=== PATIENT | female | born 1995 | race Hispanic/Latino ===

== ENCOUNTER → 2017-10-05 | Outpatient (CLI) | payer OTHER ==
[~2017-10-05] MED LIST: ALBU8.5H8 IH; FLUT16H NASAL; MONT10TA24 PO; NORG1TAB65 PO
== END | disposition home or self-care (01) ==
LOC: RAH 13:13
PROVIDERS: ATTEND Otolaryngology Plastic Surgery within the Head & Neck
DX: J32.9 Chronic sinusitis, unspecified (principal)
CPT/HCPCS: 70486

== ENCOUNTER 2018-07-16 06:32 | Day surgery (SDC) | payer OTHER ==
[2018-07-11 11:03] LABS: BASOPHILS % (AUTO) 0.4 % (0.0-5.0); HEMATOCRIT 39.2 % (36-48); LYMPHOCYTES % (AUTO) 26.2 % (21.0-51.0); MEAN CORPUSCULAR HGB CONC 33.2 g/dL (32.0-36.0); MEAN CORPUSCULAR VOLUME 84.2 fL (79-99); MONOCYTES % (AUTO) 5.7 % (3.0-13.0); NEUTROPHILS % (AUTO) 58.7 % (40.0-77.0); PLATELET COUNT (AUTO) 217 K/uL (130-400); RED BLOOD CELL COUNT(AUTO) 4.66 MIL/uL (4.00-5.50); RED CELL DISTRIBUTION WIDTH 13.2 % (11.0-15.5); WHITE BLOOD COUNT (AUTO) 6.9 K/uL (4.8-10.8)
[2018-07-11 11:05] VITALS: BP 120/76
[2018-07-11 11:51] LABS: INR 0.93 (0.85-1.15); PARTIAL THROMBOPLASTIN TIME 30.5 SEC (26.3-35.5); PROTHROMBIN TIME 9.8 SEC (9.6-11.6)
[2018-07-16] VITALS (16 sets, daily range): BP systolic 126–146; BP diastolic 69–85
[~2018-07-16] VITALS: Ht 154.9 cm; Wt 79.5 kg
[~2018-07-16 06:32] MED LIST changes: -ALBU8.5H8 IH; +CLARITIN D PO; -FLUT16H NASAL; +FLUTICASONE NASAL; +INHALER; +JUNEL FE PO; -NORG1TAB65 PO
[2018-07-16] MEDS ORDERED: BACITRACIN 28.4 GM OINT TP ONE (06:51)
[2018-07-16] MEDS ORDERED: LIDOCAINE HCL/EPINEPHRINE 50 ML VIAL IJ ONE (06:52)
[2018-07-16] MEDS ORDERED: EPINEPHRINE 1 MG/ML 30ML VIAL IJ ONE (06:52)
[2018-07-16] MEDS ORDERED: LACTATED RINGERS 1000ML 1,000 ML IV ONE (07:06)
[2018-07-16] MEDS ORDERED: LIDOCAINE PF 2% 5ML ABBOJECT ONE (07:35)
[2018-07-16] MEDS ORDERED: DEXAMETHASONE SOD PHOSPHATE 10MG/ML 1ML VIAL ONE (07:35)
[2018-07-16] MEDS ORDERED: PROPOFOL 10 MG/ML 20ML VIAL IV ONE (07:35)
[2018-07-16] MEDS ORDERED: SUCCINYLCHOLINE 200MG/10ML SYR ONE (07:35)
[2018-07-16] MEDS ORDERED: NEOSTIGMINE 5MG/5ML SYR IV ONE (07:36)
[2018-07-16] MEDS ORDERED: FENTANYL CITRATE PF 50 MCG/1 ML 2ML VIAL ONE (07:36)
[2018-07-16] MEDS ORDERED: ONDANSETRON HCL 4 MG/2 ML VIAL ONE ×2 (07:36→09:39)
[2018-07-16] MEDS ORDERED: MIDAZOLAM HCL 1 MG/ML 2ML VIAL ONE (07:36)
[2018-07-16] MEDS ORDERED: ROCURONIUM 10MG/1ML SYR 10 MG/ML ML ONE (07:36)
[2018-07-16] MEDS ORDERED: GLYCOPYRROLATE 1 MG/5 ML SYRINGE ONE (07:36)
[2018-07-16] MEDS ORDERED: CEFAZOLIN SODIUM 1 GM VIAL ONE (07:36)
[2018-07-16] MEDS ORDERED: FLUT16H NASAL (07:38)
[2018-07-16] MEDS ORDERED: NORE1TAB34 PO (07:39)
[2018-07-16] MEDS ORDERED: ALBU2.5V2 IH (07:40)
[2018-07-16] MEDS ORDERED: LORA-868 PO (07:42)
[2018-07-16] MEDS ORDERED: FENTANYL CITRATE PF 50 MCG/1 ML 5ML AMP IV ONE (07:48)
[2018-07-16] MEDS ORDERED: TRIAMCINOLONE ACETONIDE 40 MG/ML 1ML VIAL ONE (08:53)
[2018-07-16] MEDS ORDERED: MEPERIDINE-PF 25 MG/ML SYG ONE (09:30)
[2018-07-16] MEDS ORDERED: MORPHINE SULFATE 4 MG/1ML SYG ONE (09:45)
== END 2018-07-16 11:30 | disposition home or self-care (01) ==
LOC: DAH 06:32
PROVIDERS: ATTEND Otolaryngology Plastic Surgery within the Head & Neck
DX: J32.8 Other chronic sinusitis (principal); J33.9 Nasal polyp, unspecified; Z79.899 Other long term (current) drug therapy; Z98.890 Other specified postprocedural states; E66.9 Obesity, unspecified; Z79.01 Long term (current) use of anticoagulants
CPT/HCPCS: 31253; 31259; 31267; 36415; 61782; 84703; 85025; 85610; 85730; 87070 ×2; 87076 ×2; 87077; 87186; A4218; A4649 ×4; A4930; C2625; J0171; J0330; J0690; J1100; J2001; J2175; J2250; J2270; J2405 ×2; J2704; J2710; J3010 ×2; J3301; J3490; J7040; J7120

== ENCOUNTER → 2018-12-13 | Outpatient (CLI) | payer OTHER ==
[~2018-12-13] MED LIST changes: +ALBU2.5V2 IH; -CLARITIN D PO; -FLUTICASONE NASAL; -INHALER; -JUNEL FE PO; +LORA-868 PO; +NORE1TAB34 PO
[2018-12-13 13:06] LABS: T4 (THYROXINE) 13.7 ug/dL (4.7-13.3); THYROID STIMULATING HORMONE 1.6 uIU/mL (0.36-3.74)
== END | disposition home or self-care (01) ==
LOC: RAH 10:47
PROVIDERS: ATTEND Internal Medicine
DX: E04.2 Nontoxic multinodular goiter (principal); E05.90 Thyrotoxicosis, unspecified without thyrotoxic crisis or storm; E06.3 Autoimmune thyroiditis; Q61.3 Polycystic kidney, unspecified
CPT/HCPCS: 36415; 76536; 76770; 82306; 84436; 84439; 84443; 84480; 84481